=== PATIENT | male | born 1950 | race Caucasian/White ===

== ENCOUNTER 2019-07-27 12:19 | Outpatient (RCR) | payer MEDICARE, MEDICAID, SELFPAY ==
[2019-07-27 13:31] LABS: Add Urine Microscopic? YES; Bilirubin Urine Neg (NEGATIVE); Blood Urine 3+ (Negative); Glucose Urine UA Norm (Normal); Ketones Urine Negative (Negative); Leukocyte Esterase Urine 2+ (Negative); Nitrate Urine Negative (Negative); Protein Urine 2+ (Negative); Sulfosalicylic Acid Urine Negative; Urine Appearance Cloudy (CLEAR); Urine Color Yellow (Yellow); Urobilinogen Urine Norm (Negative); pH Urine 8.5 (5-7)
[2019-07-27 13:45] LABS: Add Urine Culture? Yes; Bacteria Urine 1+; RBC Urine 40-50 /hpf (0-2); Squamous Epithelial Cell Urine 0-4 (0-5); WBC Urine >100 /hpf (0-5)
== END 2019-08-07 23:59 | disposition home or self-care (01) ==
LOC: LAB 12:19
PROVIDERS: Visit Provider Dermatology
DX: N39.0 Urinary tract infection, site not specified (principal); G20 Parkinson's disease
CPT/HCPCS: 81003; 87086